=== PATIENT | male | born 1955 | race Caucasian/White ===

== ENCOUNTER 2023-07-21 05:19 | Emergency (ER) | payer MEDICARE, SELFPAY ==
[2023-07-21 05:25] VITALS: BP 148/67; PULSE 64; RESP 18; TEMP 36.1; O2SAT 97; BMI 30.4
[2023-07-21 05:32] VITALS: PULSE 64; O2SAT 98
[2023-07-21] MEDS: KETOROLAC 30 MG/ML VIAL IV (05:44)
[2023-07-21] MEDS: ONDANSETRON 4 MG/2 ML INJ IV (05:46)
[2023-07-21] MEDS: SODIUM CHLORIDE 0.9% FLUSH 10 ML IV (05:47)
--- NOTE | 2023-07-21 05:49 | ED_ITS ---
HPI - Abdominal Pain General Chief Complaint: Abdominal Pain Stated Complaint: kidney stone Time Seen by Provider: 07/21/23 05:49 Source: patient Mode of arrival: Ambulatory History of Present Illness HPI narrative: Patient is a 68-year-old male history of hypertension kidney stones presenting today with right flank pain. They are staying from out of town reports that pain while confirms. He has pain in his back right flank area this feels similar to previous kidney stones. He has had lithotripsy 3 times multiple kidney stones. He currently has no pain medication home. Not really feeling any nausea no fever chills. No hematuria. Denies all other symptoms. Related Data Previous Rx's Medication Instructions Recorded oxycodone-acetaminophen 5 mg-325 1 tab PO Q6H PRN pain #10 tabs 07/21/23 mg tablet (Percocet) Allergies Allergy/AdvReac Type Severity Reaction Status Date / Time Penicillins Allergy Verified 07/21/23 05:34 tetracycline Allergy Verified 07/21/23 05:34 Exam Initial Vital Signs Initial Vital Signs: Vital Signs Temperature 97.0 F L 07/21/23 05:25 Pulse Rate 64 07/21/23 05:25 Respiratory Rate 18 07/21/23 05:25 Blood Pressure 148/67 H 07/21/23 05:25 Pulse Oximetry 97 07/21/23 05:25 Oxygen Delivery Method Room Air 07/21/23 05:25 GENERAL: Alert pleasant well-appearing 68-year-old male and in no acute distress. HEENT: Head atraumatic,EOMI, pupils reactive, face symmetric, moist mucous membranes CARDIOVASCULAR: Regular rate and rhythm without murmurs, rubs or gallops. RESPIRATORY: Breath sounds equal bilaterally, no wheezes rales or rhonchi. ABDOMEN: Soft, nontender. Normoactive bowel sounds all 4 quadrants. No guarding or rebound. : Mild right CVA tenderness EXTREMITIES: Normal range of motion, no clubbing or edema. Neurovascularly intact NEUROLOGICAL: Alert and oriented x4.Normal gait and speech. SKIN: Warm, dry, no laceration, no petechiae, no rashes or lesions. Course Orders Ordered: Discontinued Medications Sodium Chloride (Normal Saline 0.9%) 1,000 mls @ 1,000 mls/hr IV BOLUS ONE Stop: 07/21/23 07:03 Last Infusion: 07/21/23 07:38 Dose: Infused Documented By: Admin: 07/21/23 06:29 Dose: 1,000 mls/hr Documented By: CHARLY Ketorolac Tromethamine (Ketorolac 30 Mg/Ml Vial) 30 mg IV NOW ONE Stop: 07/21/23 05:39 Last Admin: 07/21/23 05:44 Dose: 30 mg Documented By: SYEDA Ondansetron HCl (Ondansetron 4 Mg/2 Ml Inj) 4 mg IV NOW ONE Stop: 07/21/23 05:40 Last Admin: 07/21/23 05:46 Dose: 4 mg Documented By: SYEDA Ondansetron HCl (Ondansetron 4 Mg/2 Ml Inj) 4 mg IV NOW PRN PRN Reason: Nausea And Vomiting Ondansetron HCl (Ondansetron 4 Mg Odt) 4 mg PO NOW PRN PRN Reason: Nausea And Vomiting Sodium Chloride (Sodium Chloride 0.9% Flush) 10 ml IV BID RHONDA Sodium Chloride (Sodium Chloride 0.9% Flush) 10 ml IV PRN PRN PRN Reason: Flush Last Admin: 07/21/23 05:47 Dose: 10 ml Documented By: SYEDA Vital Signs Vital signs: Vital Signs - 8 hr 07/21/23 05:25 Temperature 97.0 F L Pulse Rate 64 Respiratory Rate 18 Blood Pressure 148/67 H Pulse Oximetry 97 Oxygen Delivery Method Room Air MDM - Abdominal Pain Lab Data 07/21/23 05:35 07/21/23 05:35 Labs: Lab Results 07/21/23 07/21/23 Range/Units 05:35 07:10 WBC 7.9 (4.5-11.0) X10^3/uL RBC 4.10 L (4.5-5.9) X10^6/uL Hgb 12.3 L (13.5-17.5) g/dL Hct 36.4 L (41-53) % MCV 88.9 (80-100) fL MCH 30.0 (26-34) PG MCHC 33.7 (30-36) % RDW 13.2 (11.6-14.8) % Plt Count 123 L (150-400) X10^3/uL Neut % (Auto) 75.3 H (50-75) % Lymph % (Auto) 14.0 L (25-40) % [place] % (Auto) 7.6 (3-14) % Eos % (Auto) 2.8 (2-4) % Baso % (Auto) 0.3 (0-2) % Neut # (Auto) 6000 (2298-4750) /uL Lymph # (Auto) 1100 (4535-6240) /uL [place] # (Auto) 600 (0-900) /uL Eos # (Auto) 200 (0-450) /uL Baso # (Auto) 0 (0-100) /uL Sodium 138 (137-145) mmol/L Potassium 4.4 (3.4-5.1) mmol/L Chloride 108 H (98-107) mmol/L Carbon Dioxide 19 L (22-32) mmol/L BUN 27 H (9-20) mg/dL Creatinine 1.78 H (0.66-1.25) mg/dL Estimated GFR 41 L (>60) mL/min BUN/Creatinine Ratio 15.2 (6-22) Glucose 202 H (80-110) mg/dL Calcium 9.5 (8.4-10.2) mg/dL Total Bilirubin 1.0 (0.2-1.3) mg/dL AST 35 (17-59) IU/L ALT 26 (<50) IU/L Alkaline Phosphatase 70 (38-126) U/L Total Protein 7.4 (6.3-8.2) g/dL Albumin 4.5 (3.5-5.0) g/dL Globulin 2.9 (1.7-4.1) g/dL Albumin/Globulin Ratio 1.6 (1.0-2.8) Lipase 320 H (23-300) U/L Urine RBC 10-30/hpf H (0-5/HPF) Urine WBC None seen (0-5/HPF) Ur Squamous Epith Cells 0-1 /hpf (0-5/HPF) Urine Bacteria None seen (None) Ur Culture Indicated? Cult not indicated Vol Urine Centrifuged 10ml (spun) Point of care testing: Urine Dip Bedside Urine Glucose 1000 mg/dl Bedside Urine Bilirubin - Negative Bedside Urine Ketone - Negative Urine Specific [place] 1.020 Bedside Urine Occult Blood +++ Bedside Urine pH 5.5 Bedside Urine Protein - Negative Bedside Urine Urobilinogen - Negative Bedside Urine Nitrite - Negative Bedside Urine Leukocytes - Negative Esterase Imaging Data CT scan - abdomen/pelvis: Radiologist's Impression: PROCEDURE: CT KIDNEY URETER BLADDER (KUB) INDICATIONS: right flank pain TECHNIQUE: Axial sections were acquired from the lung bases to the pubic symphysis. Coronal and sagittal reformats were performed. For radiation dose reduction, the following was used: automated exposure control, adjustment of mA and/or kV according to patient size. COMPARISON: None. FINDINGS: Image quality: Diagnostic. Lower Chest: Coronary artery calcifications. No pleural effusion. URINARY: Right Kidney: No hydronephrosis. 2 small nonobstructing kidney stones. Right Ureter: No hydroureter. Right ureter is slightly more prominent compared to the left. No obstructing stone. Left Kidney: No hydronephrosis. 2 or 3 small nonobstructing stones. The largest measuring 0.7 cm. Left Ureter: No hydroureter. Bladder: Stone in the dependent bladder measuring 0.4 cm, (2/73). No wall thickening seen. ABDOMEN: Liver: No contour-deforming solid mass. Suspect nodularity at the liver surface. Gallbladder: Not distended. Large gallstone measuring 3.4 cm. Biliary ducts: No biliary dilation. Pancreas: No peripancreatic fluid collection. Spleen: Measures 15.7 cm in length. Adrenal Glands: No adrenal nodules. Stomach and Bowel: Normal colonic caliber, without significant wall thickening. A few colonic diverticuli. The appendix is not seen. Peritoneum: No abnormal intraperitoneal fluid. No free air. Ventral Wall: No hernia. Abdominal Nodes: No enlarged retroperitoneal or mesenteric lymph nodes. Vessels: Ectasia measuring 2.5 cm. Extensive calcified plaque. PELVIS: Pelvic Organs: Prominent prostate gland. Pelvic Nodes: Unremarkable. Miscellaneous: No inguinal hernias are seen. Bones: No suspicious osseous lesion. IMPRESSION: 1. No hydronephrosis. No obstructing calculus. 2. Small stone in the urinary bladder measuring 0.4 cm. This could represent a recently passed kidney stone. 3. Several nonobstructing bilateral kidney stones. 4. Liver surface appears nodular which is concerning for cirrhosis. Splenomegaly. 5. Large gallstone. This report is concordant with the overnight preliminary interpretation. Dictated by: Dorian Gamez M.D. on 07/21/2023 at 8:02 MDM Narrative Medical decision making narrative: Patient 68-year-old male presents today with right-sided flank pain. He has previously had multiple kidney stones requiring lithotripsy. He is visiting her out of town today when suddenly presented with pain. Blood work has been reviewed WBC 7.9 hemoglobin 12.3 crit 36.4, platelets 123, sodium 134, potassium 4.4, chloride 108, carbon dioxide 19, BUN 27 creatinine 1.78, glucose 202, lipase 320 Urinalysis has red blood cells but no nitrites CT confirms 4 mm kidney stone on the right side in the bladder. Patient's pain is controlled after Toradol and Zofran overall feeling a lot better. He is likely going to pass the stone the next time he urinates. Blood work does show elevated creatinine of 1.78 it is unclear what his normal is. This type supportive care he will follow-up with his primary Discharge Plan Departure Patient Disposition: Home Clinical Impression: Calculus of kidney Instructions: DI for Kidney Stones Activity Restrictions/Additional Instructions: *You have been diagnosed with kidney stone *What to do: At this time you do have a 4 mm kidney stone which is actually in your bladder *Continue to take medications as directed Ibuprofen 600 mg every 6 hours if needed for [id number] pain Percocet 1 tablet every 6 hours if needed for moderate to severe pain *Follow up with your primary care provider in 2-3 days or call [phone] *Return to ER if you should have increasing pain nausea vomiting fever [or] any new, worsening or concerning symptoms CONTROLLED SUBSTANCE DISCHARGE (Narcotoic/benzodiazepine/Flexeril/Phenergan) 1. You have been prescribed narcotic medications, it does have acetaminophen/Tylenol/paracetamol in it, DO NOT TAKE MORE THAN 4,00mg in 24 hours of Tylenol. TRAMADOL DOES NOT CONTAIN TYLENOL 2. Please understand that we cannot provide further refills of narcotics, benzodiazepines or controlled substances through the ED and her pain management will need to be through your provider. 3. While on these medications you cannot drive or operate heavy machinery. 4. You cannot sign legal documents or perform any duties such as this. 5. As long as you're taking opiate pain medications he should also be taking a stool softener such as Colace, Dulcolax, MiraLAX or prune juice, to help avoid constipation. Prescriptions: New oxycodone-acetaminophen [Percocet] 5-325 mg tablet 1 tab PO Q6H PRN (Reason: pain) Qty: 10 0RF Referrals: Connor Hutton MD [Primary Care Provider] - Stand Alone Forms: Patient Portal/API
[2023-07-21 05:56] LABS: Alanine Aminotransferase 26 IU/L (<50); Albumin 4.5 g/dL (3.5-5.0); Albumin Globulin Ratio 1.6 (1.0-2.8); Alkaline Phosphatase 70 U/L (38-126); Aspartate Aminotransferase 35 IU/L (17-59); BUN Creatinine Ratio 15.2 (6-22); Blood Urea Nitrogen 27 mg/dL (9-20); Calcium 9.5 mg/dL (8.4-10.2); Carbon Dioxide 19 mmol/L (22-32); Chloride 108 mmol/L (98-107); Estimated Glomerular Filt Rate 41 mL/min (>60); Globulin 2.9 g/dL (1.7-4.1); Glucose 202 mg/dL (80-110); HEMOLYSIS < 15 (0-50); Lipase 320 U/L (23-300); Potassium 4.4 mmol/L (3.4-5.1); Sodium 138 mmol/L (137-145); Total Protein 7.4 g/dL (6.3-8.2)
--- NOTE | 2023-07-21 05:57 | DI.CT.S_ITS ---
PROCEDURE: CT KIDNEY URETER BLADDER (KUB) INDICATIONS: right flank pain TECHNIQUE: Axial sections were acquired from the lung bases to the pubic symphysis. Coronal and sagittal reformats were performed. For radiation dose reduction, the following was used: automated exposure control, adjustment of mA and/or kV according to patient size. COMPARISON: None. FINDINGS: Image quality: Diagnostic. Lower Chest: Coronary artery calcifications. No pleural effusion. URINARY: Right Kidney: No hydronephrosis. 2 small nonobstructing kidney stones. Right Ureter: No hydroureter. Right ureter is slightly more prominent compared to the left. No obstructing stone. Left Kidney: No hydronephrosis. 2 or 3 small nonobstructing stones. The largest measuring 0.7 cm. Left Ureter: No hydroureter. Bladder: Stone in the dependent bladder measuring 0.4 cm, (2/73). No wall thickening seen. ABDOMEN: Liver: No contour-deforming solid mass. Suspect nodularity at the liver surface. Gallbladder: Not distended. Large gallstone measuring 3.4 cm. Biliary ducts: No biliary dilation. Pancreas: No peripancreatic fluid collection. Spleen: Measures 15.7 cm in length. Adrenal Glands: No adrenal nodules. Stomach and Bowel: Normal colonic caliber, without significant wall thickening. A few colonic diverticuli. The appendix is not seen. Peritoneum: No abnormal intraperitoneal fluid. No free air. Ventral Wall: No hernia. Abdominal Nodes: No enlarged retroperitoneal or mesenteric lymph nodes. Vessels: Ectasia measuring 2.5 cm. Extensive calcified plaque. PELVIS: Pelvic Organs: Prominent prostate gland. Pelvic Nodes: Unremarkable. Miscellaneous: No inguinal hernias are seen. Bones: No suspicious osseous lesion. IMPRESSION: 1. No hydronephrosis. No obstructing calculus. 2. Small stone in the urinary bladder measuring 0.4 cm. This could represent a recently passed kidney stone. 3. Several nonobstructing bilateral kidney stones. 4. Liver surface appears nodular which is concerning for cirrhosis. Splenomegaly. 5. Large gallstone. This report is concordant with the overnight preliminary interpretation. Dictated by: Dorian Gamez M.D. on 07/21/2023 at 8:02 Approved by: Dorian Gamez M.D. on 07/21/2023 at 8:11
[2023-07-21 06:00] VITALS: BP 132/63; PULSE 61; O2SAT 97
[2023-07-21 06:01] LABS: Add Manual Diff / Slide Review NO; Basophils Absolute Auto 0 /uL (0-100); Basophils Percent Auto 0.3 % (0-2); Eosinophils Absolute Auto 200 /uL (0-450); Eosinophils Percent Auto 2.8 % (2-4); Hematocrit 36.4 % (41-53); Hemoglobin 12.3 g/dL (13.5-17.5); Lymphocytes Absolute Auto 1100 /uL (1100-4500); Mean Corpuscular HGB Conc 33.7 % (30-36); Mean Corpuscular Volume 88.9 fL (80-100); Monocytes Absolute Auto 600 /uL (0-900); Monocytes Percent Auto 7.6 % (3-14); Neutrophils Absolute Auto 6000 /uL (1500-7000); Neutrophils Percent Auto 75.3 % (50-75); Platelet Count 123 X10^3/uL (150-400); Red Cell Distribution Width 13.2 % (11.6-14.8); White Blood Cell Count 7.9 X10^3/uL (4.5-11.0)
[2023-07-21] MEDS: SODIUM CHLORIDE 0.9% 1,000 ML 1000 ML IV (06:29)
[2023-07-21 06:30] VITALS: BP 123/60; PULSE 61; O2SAT 96
[2023-07-21 07:00] VITALS: BP 112/54; PULSE 67; O2SAT 97
[2023-07-21 07:25] LABS: Urine Volume 10mL (spun)
[2023-07-21 07:26] LABS: Bacteria Urine None Seen; Culture Indicated Urine Cult Not Indicated; RBC Urine 10-30/HPF (0-5/HPF); Squamous Epithelial Cell Urine 0-1 /HPF (0-5/HPF); WBC Urine None Seen (0-5/HPF)
[2023-07-21 07:30] VITALS: BP 119/58; PULSE 59; O2SAT 96
== END 2023-07-21 07:39 | disposition home or self-care (01) ==
PROVIDERS: Emergency Provider Emergency Medicine; PCP Family Medicine
DX: N20.0 Calculus of kidney (principal); Z87.442 Personal history of urinary calculi
CPT/HCPCS: 36415; 74176; 80053; 81003; 81015; 83690; 85025; 96374; 96375; 99284; J1885; J2405